=== PATIENT | female | born 1955 | race Hispanic/Latino ===

== ENCOUNTER 2017-01-23 16:31 | Observation (INO) | payer MEDICAID ==
[2017-01-23 16:49] VITALS: BMI 23.1
[2017-01-23 17:54] LABS: ADD MANUAL DIFF? NO
--- NOTE | 2017-01-23 17:54 | RAD ---
HISTORY: Chest pain, palpitations COMPARISON: 12/19/2016. FINDINGS: LUNGS: The lungs are hyperinflated and there is peribronchial thickening with chronic changes in both lungs. There is no lobar pneumonia. PLEURA: No significant pleural effusion identified, no pneumothorax apparent. CARDIOVASCULAR: Normal. OSSEOUS STRUCTURES: No significant abnormalities. VISUALIZED UPPER ABDOMEN: Normal. OTHER FINDINGS: None. IMPRESSION: No active pulmonary disease. COPD.
[2017-01-23 18:05] LABS: BASO # 0.03 K/mm3 (0.0-2.0); BASO % 0.3 % (0.0-3.0); EOS # 0.2 (0.0-0.7); EOS % 2.3 % (1.5-5.0); GRAN # 5.11 (1.4-6.5); GRAN % 56.9 % (50.0-68.0); HEMATOCRIT 43.1 % (36.0-48.0); LYMPH # 2.9 (1.2-3.4); MEAN CELL VOLUME 95.4 fL (80.0-105.0); MEAN CORPUSCULAR HEMOGLOBIN 33.6 pg (25.0-35.0); MEAN CORPUSCULAR HGB CONC 35.3 g/dl (31.0-37.0); MEAN PLATELET VOLUME 10.2 fl (7.0-11.0); MONO # 0.8 (0.1-0.6); MONO % 8.5 % (1.0-6.0); PLATELET COUNT 199 10^3/uL (120.0-450.0); RED CELL DISTRIBUTION WIDTH 13.6 % (11.5-14.5)
[2017-01-23 18:06] LABS: INR 2.83 (0.93-1.08); PARTIAL THROMBOPLASTIN TIME 42.2 Seconds (23.7-30.8)
[2017-01-23 18:10] LABS: ALB/GLOB RATIO 1.3 (1.1-1.8); ALKALINE PHOSPHATASE 58 U/L (38-133); ALT/SGPT 26 U/L (7-56); AST/SGOT 22 U/L (15-39); BILIRUBIN,TOTAL 1.1 mg/dL (0.2-1.3); BLOOD UREA NITROGEN 15 mg/dL (7-21); CALCIUM 10.4 mg/dL (8.4-10.5); CARBON DIOXIDE 24 mmol/L (21-33); CHLORIDE 99 mmol/L (98-107); GFR AFRICAN-AMERICAN > 60; GLUCOSE,RANDOM 160 mg/dL (70-110); POTASSIUM 3.8 mmol/L (3.6-5.0); SODIUM 138 mmol/L (132-148); TOTAL PROTEIN 8.1 g/dL (5.8-8.3)
[2017-01-23 18:25] LABS: TROPONIN I < 0.01 ng/mL
[2017-01-23 18:49] LABS: T4 9.6 ug/dL (5.5-11.0)
--- NOTE | 2017-01-23 19:02 | ED PDOC ---
Arrival/HPI - General Chief Complaint: Anxiety Time Seen by Provider: 01/23/17 16:58 Historian: Patient - History of Present Illness Narrative History of Present Illness (Text): 01/23/17 18:48 Patient with PMHx includes DM, acute coronary syndrome, afib, HTN, pharyngitis, pneumonia, TIA, hyperthyroidism, psoriasis (elbows), osteoporosis, diverticulitis, panic disorder and pancreatitis, reports experiencing dizziness described as lightheadedness with palpitations, heaviness to the center of her chest, and SOB, which all started one hour prior to arrival after she took a shower, patient states that she got dressed immediately and sat down, reports that her symptoms improved however she still continues to complain of dizziness and heaviness to her chest upon arrival to the emergency room. Otherwise: (-) radiation, (-) diaphoresis, (-) dyspnea, (-) pleuritic component, (-) ripping or tearing quality, (-) positional component, (-) exertional component, (+) mild headache, (-) syncope, (-) nausea, (-) vomiting, (-) calf swelling/pain, (- ) recent travel, (-) neuro deficits. Of note patient reports having a stress test recently however does not know the results. PMD [place] Past Medical History - Provider Review Nursing Documentation Reviewed: Yes - Infectious Disease Hx of Infectious Diseases: None - Tetanus Immunization Tetanus Immunization: Unknown - Cardiac Hx Cardiac Disorders: Yes (ACS(ACUTE CORONARY SYNDROME)) Hx Cardiac Arrhythmia: Yes (AFIB) Hx Hypertension: Yes - Pulmonary Hx Pneumonia: Yes (" LAST TIME WAS A LONG TIME AGO.") - Neurological Hx Neurological Disorder: Yes Hx Transient Ischemic Attacks (TIA): Yes - HEENT Hx HEENT Disorder: No - Renal Hx Renal Disorder: Yes Hx Kidney Stones: Yes - Endocrine/Metabolic Hx Diabetes Mellitus Type 2: Yes - Hematological/Oncological Hx Blood Disorders: No - Integumentary Hx Dermatological Disorder: Yes Hx Psoriasis: Yes ([place]) - Musculoskeletal/Rheumatological Hx Arthritis: Yes ("LASHAWN. TO MY BACK") Hx Osteoarthritis: Yes - Gastrointestinal Hx Pancreatitis: Yes - Genitourinary/Gynecological Hx Genitourinary Disorders: Yes - Psychiatric Hx Psychophysiologic Disorder: Yes Hx Panic Disorder: Yes - Surgical History Hx Hysterectomy: Yes - Anesthesia Hx Anesthesia: Yes Hx Anesthesia Reactions: No Hx Malignant Hyperthermia: No - Suicidal Assessment Feels Threatened In Home Enviroment: No Family/Social History - Physician Review Nursing Documentation Reviewed: Yes Family/Social History: No Known Family HX Smoking Status: Heavy Smoker > 10 Cigarettes Daily Hx Alcohol Use: No Hx Substance Use Treatment: No Allergies/Home Meds Allergies/Adverse Reactions: Allergies No Known Allergies Allergy (Verified 01/23/17 16:48) Home Medications: Home Meds Medication Instructions Recorded Confirmed Atorvastatin Calcium [Lipitor] 10 mg PO DAILY 12/04/13 01/23/17 Canagliflozin/Metformin HCl 1 each PO BID 05/22/16 01/23/17 [Invokamet 150-1,000 mg Tablet] Cholecalciferol (Vitamin D3) 1,000 unit PO DAILY 05/22/16 01/23/17 [Vitamin D3] Atenolol [Tenormin] 25 mg PO DAILY 12/15/16 01/23/17 Levothyroxine [Synthroid] 50 mcg PO DAILY 12/15/16 01/23/17 Warfarin [Coumadin] 2 mg PO DAILY 12/15/16 01/23/17 Review of Systems - Review of Systems Constitutional: Normal. absent: Fatigue, Weight Change, Fevers Respiratory: Normal, SOB. absent: Cough, Sputum, Wheezing Cardiovascular: Normal, Chest Pain, Palpitations (due to h/o a fib). absent: Edema Gastrointestinal: Normal. absent: Abdominal Pain, Stool Changes, Nausea, Vomiting Musculoskeletal: Normal. absent: Arthralgias, Back Pain, Neck Pain Skin: Normal. absent: Rash, Pruritis, Skin Lesions Neurological: Normal, Dizziness. absent: Headache, Focal Weakness Psychiatric: Normal, Anxiety (prior episodes). absent: Depression, Suicidal Ideation Physical Exam - Physical Exam Narrative Physical Exam (Text): 01/23/17 18:53 GENERAL APPEARANCE: Patient is awake, alert, anxious, hyperventilating, oriented x 3, in mild distress. SKIN: Warm, dry; (-) cyanosis. EYES: (-) conjunctival pallor. ENMT: Mucous membranes moist. NECK: (-) tenderness, (-) stiffness, (-) lymphadenopathy, (-) JVD. CHEST AND RESPIRATORY: (-) rash, (-) chest wall tenderness. Lungs: (-) rales , (-) rhonchi, (-) wheezes, (-) rub; breath sounds equal bilaterally. HEART AND CARDIOVASCULAR: (-) irregularity; (-) murmur, (-) gallop, (-) rub. ABDOMEN AND GI: Soft; (-) distention, (-) tenderness, (-) palpable pulsatile mass. EXTREMITIES: (-) deformity; (-) edema, (-) calf tenderness. (+) distal pulses. NEURO AND PSYCH: Mental status as above. Cranial nerves grossly intact; strength symmetric. Vital Signs Temp Pulse Resp BP Pulse Ox 01/23/17 21:24 18 98 01/23/17 20:12 78 18 114/26 L 96 01/23/17 17:49 75 18 122/79 99 01/23/17 16:31 98.2 F 77 18 124/84 99 Medical Decision Making ED Course and Treatment: 01/23/17 18:53 61 yo F PMHx of acute coronary syndrome, afib, HTN, presents with an episode of dizziness, heaviness to her chest, palpitations or shortness of breath prior to arrival. Previous medical records reviewed : Patient had an echo on 12/16/14 : EF is 55-60%, trace aortic regurg, mitral valve regurg mild-mod, mod tricupside regurg On 12/01/13, patient had an IV lexiscan nuclear stress test which was (-) for CP and (-) for ST-T changes, nuclear scan report was still pending at that time, test was performed by Dr. Corby Baltazar On Dr. Spain's note written on 12/03/13, patient had a stress thalium test, that showed reversible ischemia, suspicious for ischemia, reported as moderate anterior defect and moderate reversibility due to ischemia. It was documented that the plan was for the patient to go for cardiac cath then. Plan: -- Labs -- IV fluids -- Urinalysis -- TSH / T3/ T4 -- EKG -- CXR -- ASA PO -- Ativan IV -- Reassess and disposition Re-evaluation Time: 19:00 Reassessment Condition: Re-examined, Improved (Patient lying in bed in no acute distress, reports no lightheadedness, chest pain, shortness of breath at this time.) - Lab Interpretations Lab Results: 01/23/17 17:40 01/23/17 17:40 Lab Results 01/23/17 17:40: Thyroxine (T4) 9.6, Total T3 0.84 L, TSH 3rd Generation 2.04 01/23/17 17:40: Sodium 138, Potassium 3.8, Chloride 99, Carbon Dioxide 24, Anion Gap 19, BUN 15, Creatinine 0.7, Est GFR ( Amer) > 60, Est GFR (Non- Af Amer) > 60, Random Glucose 160 H, Calcium 10.4, Magnesium 2.0, Total Bilirubin 1.1, AST 22, ALT 26, Alkaline Phosphatase 58, Lactate Dehydrogenase 372, Total Creatine Kinase 33 L, Troponin I < 0.01, NT-Pro-B Natriuret Pep 61.3 , Total Protein 8.1, Albumin 4.5, Globulin 3.6, Albumin/Globulin Ratio 1.3 01/23/17 17:40: PT 30.6 H*, INR 2.83 H, APTT 42.2 H 01/23/17 17:40: WBC 9.0, RBC 4.52, Hgb 15.2, Hct 43.1, MCV 95.4, MCH 33.6, MCHC 35.3, RDW 13.6, Plt Count 199, MPV 10.2, Gran % 56.9, Lymph % (Auto) 32.0, [place] % (Auto) 8.5 H, Eos % (Auto) 2.3, Baso % (Auto) 0.3, Gran # 5.11, Lymph # 2.9, Carson # 0.8 H, Eos # 0.2, Baso # 0.03 I have reviewed the lab results: Yes (trop (-) BNP (-) ) Interpretation: All labs normal - RAD Interpretation Narrative RAD Interpretations (Text): 01/23/17 23:16 CXR : NAD, as read by TINO Radiology Orders: 01/23/17 17:28 CHEST PORTABLE [RAD] Stat - EKG Interpretation EKG Interpretation (Text): 01/23/17 23:17 EKG: NSR at 68 bpm, (-) acute ST changes, as read by TINO. - Medication Orders Current Medication Orders: Acetaminophen (Tylenol 325mg Tab) 650 mg PO Q6 PRN PRN Reason: Pain, moderate (4-7) Aspirin (Aspirin Chewable) 81 mg PO DAILY GISELL Atenolol (Tenormin) 25 mg PO DAILY GISELL Atorvastatin Calcium (Lipitor) 10 mg PO DIN GISELL Cholecalciferol (Vitamin D) 1,000 iu PO DAILY GISELL Famotidine (Pepcid) 20 mg PO DAILY [facility] Insulin Human Regular (Humulin R Low) 0 units SC ACHS GISELL PRN Reason: Protocol Last Admin: 01/23/17 22:18 Dose: Not Given Non-Admin Reason: Blood Sugar Parameter Levothyroxine Sodium (Synthroid) 50 mcg PO ACB GISELL Warfarin Sodium (Coumadin) 2 mg PO 1800 GISELL PRN Reason: Protocol Discontinued Medications Aspirin (Aspirin) 325 mg PO STAT STA Stop: 01/23/17 17:28 Last Admin: 01/23/17 18:31 Dose: 325 mg Lorazepam (Ativan) 0.5 mg IVP ONCE ONE PRN Reason: Protocol Stop: 01/23/17 17:30 Last Admin: 01/23/17 18:31 Dose: 0.5 mg - Transfer of Care Other: Case d/w Dr. Lerner, agrees with plan for inpatient tele obs. - PA / DRUM TESTER / Resident Statement / has reviewed & agrees with the documentation as recorded. Disposition/Present on Arrival - Present on Arrival Any Indicators Present on Arrival: Yes History of DVT/PE: No History of Uncontrolled Diabetes: Yes Urinary Catheter: No History of Decub. Ulcer: No History Surgical Site Infection Following: None - Disposition Have Diagnosis and Disposition been Completed?: Yes Diagnosis: Chest pain, Palpitations Disposition: HOSPITALIZED Disposition Time: 19:38 Patient Plan: Observation (telemetry) Patient Problems: Current Active Problems Problem Status Onset Chest pain Acute Palpitations Acute Condition: STABLE
[2017-01-23 19:03] LABS: T3 0.84 ng/mL (0.97-1.69); THYROID STIMULATING HORMONE 2.04 mIU/mL (0.46-4.68)
[2017-01-23 20:43] LABS: URINE BILIRUBIN NEGATIVE (NEGATIVE); URINE BLOOD TRACE-INTACT (NEGATIVE); URINE GLUCOSE (UA) >=1000 mg/dL (NEGATIVE); URINE KETONE NEGATIVE (NEGATIVE); URINE LEUKOCYTE ESTERASE NEGATIVE Leu/uL (NEGATIVE); URINE PROTEIN NEGATIVE mg/dL (<30 mg/dL); URINE UROBILINOGEN 0.2 E.U./dL (<1 E.U./dL)
[2017-01-23 20:45] LABS: URINE APPEARANCE CLEAR (CLEAR); URINE COLOR YELLOW (YELLOW)
[2017-01-23 20:48] LABS: URINE WBC 0 - 2 /hpf (0-6)
[2017-01-23 20:49] LABS: URINE AMORPHOUS SEDIMENT FEW; URINE BACTERIA MANY (NEG)
--- NOTE | 2017-01-23 21:14 | CP.PCM.HP ---
<OrtizIsacMegan - Last Filed: 01/23/17 21:46> History of Present Illness - History of Present Illness History of Present Illness: Internal medicine H & P for Hospitalist Team- Megan Ortiz, PGY-1 Pt S & E at bedside. 61F w/PMH sig for paroxysmal afib on Coumadin and multiple co-morbidities admitted for chest tightness x 1 day. Pt reports she was taking a shower this evening, when she stepped out of the shower, she felt her chest was tight. Pt reports palpitations, variable heart racing/susana- felt like when she had afib before, pt got frightened, called her son- who called EMS to transport pt to hospital. Admits to lightheadedness, SOB, blurry vision, recent diarrhea & xerostomia (stopped 4-5 days ago after pt discontinued medication for urinary incontinence), urinary incontinence. Denies N/V/F/C, chest pain, abdominal pain , dizziness, recent changes in bowel or bladder habits, LE numbness/tingling/ edema/pain, [place], chest pain with exertion. PMH: DM, HTN, afib, hypothyroidism, arthritis, hx pancreatitis, PUD, nephrolithiasis, osteoporosis PSH: Hysterectomy (1996) All: NKA SH: ETOH on special occasions/rare, admits to Tobacco use 1/2ppd x 25 yrs, denies illicit drug use PMD: [place] Pharmacy: [facility] meds: Atenolol 25mg QD, Synthroid 50mg QD, Coumadin 2mg QD, D3 1,000mg QD, Invokemet/Metformin 150/1000mg BID Present on Admission - Present on Admission Any Indicators Present on Admission: No History of DVT/PE: No History of Uncontrolled Diabetes: No Urinary Catheter: No Decubitus Ulcer Present: No Review of Systems - Review of Systems All systems: reviewed and no additional remarkable complaints except - Constitutional Constitutional: Lethargy, Weight Loss. absent: Chills, Fever, Headache, Weakness - EENT Eyes: Blurred Vision. absent: Diplopia Nose/Mouth/Throat: absent: Nasal Congestion, Sore Throat - Cardiovascular Cardiovascular: Dyspnea, Lightheadedness, Palpitations, Rapid Heart Rate, Slow Heart Rate. absent: Chest Pain, Dyspnea on Exertion, Pain Radiating to Arm/Neck /Jaw, Leg Edema - Respiratory Respiratory: absent: Cough - Gastrointestinal Gastrointestinal: Diarrhea (resolved- occurred while on a medication that she discontinued 4-5 days ago). absent: Abdominal Pain, Constipation, Nausea, Vomiting - Genitourinary Genitourinary: Urinary Incontinence. absent: Difficulty Urinating, Dysuria - Musculoskeletal Musculoskeletal: absent: Neck Pain, Numbness, Tingling - Integumentary Integumentary: absent: Rash - Neurological Neurological: absent: Dizziness, Tingling, Weakness - Psychiatric Psychiatric: Anxiety Past Patient History - Infectious Disease Hx of Infectious Diseases: None - Tetanus Immunizations Tetanus Immunization: Unknown - Past Medical History & Family History Past Medical History?: Yes - Past Social History Smoking Status: Heavy Smoker > 10 Cigarettes Daily - CARDIAC Hx Cardiac Disorders: Yes (ACS(ACUTE CORONARY SYNDROME)) Hx Cardia Arrhythmia: Yes (AFIB) Hx Hypertension: Yes - PULMONARY Hx Pneumonia: Yes (" LAST TIME WAS A LONG TIME AGO.") - NEUROLOGICAL Hx Neurological Disorder: Yes Hx Transient Ischemic Attacks (TIA): Yes - HEENT Hx HEENT Problems: No - RENAL Hx Chronic Kidney Disease: Yes Hx Kidney Stones: Yes - ENDOCRINE/METABOLIC Hx Diabetes Mellitus Type 2: Yes - HEMATOLOGICAL/ONCOLOGICAL Hx Blood Disorders: No - INTEGUMENTARY Hx Dermatological Problems: Yes Hx Psoriasis: Yes ([place]) - MUSCULOSKELETAL/RHEUMATOLOGICAL Hx Arthritis: Yes ("LASHAWN. TO MY BACK") Hx Osteoarthritis: Yes - GASTROINTESTINAL Hx Pancreatitis: Yes - GENITOURINARY/GYNECOLOGICAL Hx Genitourinary Disorders: Yes - PSYCHIATRIC Hx Psychophysiologic Disorder: Yes Hx Panic Symptoms: Yes - SURGICAL HISTORY Hx Hysterectomy: Yes - ANESTHESIA Hx Anesthesia: Yes Hx Anesthesia Reactions: No Hx Malignant Hyperthermia: No Meds Allergies/Adverse Reactions: Allergies Allergy/AdvReac Type Severity Reaction Status Date / Time No Known Allergies Allergy Verified 01/23/17 16:48 Physical Exam - Constitutional Appears: Non-toxic, No Acute Distress - Head Exam Head Exam: ATRAUMATIC, NORMAL INSPECTION, NORMOCEPHALIC - Eye Exam Eye Exam: EOMI, Normal appearance, PERRL Pupil Exam: NORMAL ACCOMODATION, PERRL - ENT Exam ENT Exam: Mucous Membranes Moist, Normal Exam - Neck Exam Neck exam: Positive for: Full Rom, Normal Inspection. Negative for: Tenderness - Respiratory Exam Respiratory Exam: Clear to Auscultation Bilateral, NORMAL BREATHING PATTERN. absent: Accessory Muscle Use, Chest Wall Tenderness - Cardiovascular Exam Cardiovascular Exam: REGULAR RHYTHM, +S1, +S2. absent: Diastolic murmur, Systolic Murmur - GI/Abdominal Exam GI & Abdominal Exam: Normal Bowel Sounds, Soft. absent: Tenderness - Extremities Exam Extremities exam: Positive for: normal inspection. Negative for: pedal edema, tenderness - Neurological Exam Neurological exam: Alert, CN II-XII Intact, Oriented x3 - Psychiatric Exam Psychiatric exam: Normal Affect, Normal Mood - Skin Skin Exam: Dry, Intact, Normal Color, Warm Results - Vital Signs Recent Vital Signs: Last Vital Signs Temp 98.2 F 01/23/17 16:31 Pulse 78 01/23/17 20:12 Resp 18 01/23/17 20:12 BP 114/26 L 01/23/17 20:12 Pulse Ox 96 01/23/17 20:12 - Labs Result Diagrams: 01/23/17 17:40 01/23/17 17:40 Labs: Laboratory Results - last 24 hr 01/23/17 20:23 Urine Color Yellow Urine Appearance Clear Urine pH 7.0 Ur Specific [place] 1.010 Urine Protein Negative Urine Glucose (UA) >=1000 Urine Ketones Negative Urine Blood Trace-intact H Urine Nitrate Negative Urine Bilirubin Negative Urine Urobilinogen 0.2 Ur Leukocyte Esterase Negative Urine RBC 2 - 5 Urine WBC 0 - 2 Ur Epithelial Cells 1 - 3 Amorphous Sediment Few Urine Bacteria Many Urine Other Uyeast Assessment & Plan - Assessment and Plan (Free Text) Assessment: Chest pain R/O ACS Trop neg x 1 CK 33 BNP 61.3 EKG w/NSR FU serial trops/EKG FU Lipid panel TSH 2.04 T4 0.84 Total T3 0.84 tylenol PRN ASA 81mg QD Restarted home med: Coumadin 2mg QD O2 via NC PRN cardio consulted- Ascencio HTN BP 124/84 Home med: Atenolol 25mg QD DM Blood sugar 160 ISS -low protocol Accuchecks FU A1c diabetic diet Hold home med: Invokemet/metformin HLD FU lipid panel Home med: Lipitor 10mg QD HypovitaminDosis Home med: Cholecalciferol 1,000 units QD Hypothyroidism TSH 2.04 T4 0.84 Total T3 0.84 Home med: Synthroid 50mg QD Anxiety Given Ativan 0.5mg x 1 in ED Lethargic during interview Monitor GI/DVT ppx SCDs Already on Coumadin PT 30.6 PTT 42.4 INR 2.83 Ambulate Dispo Admit to tele VS Q6H HHD/mod CCD Activity as lyla OOBTC Ambulate DW attending - Date & Time Date: 01/23/17 Time: 08:00 Decision To Admit - Pt Status Changed To: Hospital Disposition Of: Observation - . Bed Request Type: Telemetry Admitting Physician: Froilan Lerner MD <Froilan Lerner MD - Last Filed: 01/28/17 07:55> Results - Vital Signs Recent Vital Signs: Last Vital Signs Temp 97.8 F 01/25/17 12:00 Pulse 65 01/25/17 12:00 Resp 20 01/25/17 12:00 BP 112/75 01/25/17 12:00 Pulse Ox 92 L 01/25/17 05:26 - Labs Result Diagrams: 01/24/17 03:00 01/25/17 12:07 Attending/Attestation - Attestation I have personally seen and examined this patient.: Yes I have fully participated in the care of the patient.: Yes I have reviewed all pertinent clinical information: Yes Notes (Text): I agree with the above H&P completed by the resident physician. 01/28/17 07:55
[2017-01-23] MEDS: Insulin Reg-LOW-Coverage SC SCH (22:18)
[2017-01-24 03:09] LABS: ADD MANUAL DIFF? NO
[2017-01-24 03:12] LABS: BASO # 0.03 K/mm3 (0.0-2.0); BASO % 0.4 % (0.0-3.0); EOS # 0.3 (0.0-0.7); EOS % 4.7 % (1.5-5.0); GRAN # 3.03 (1.4-6.5); GRAN % 42.1 % (50.0-68.0); HEMATOCRIT 43.8 % (36.0-48.0); LYMPH % 40.9 % (22.0-35.0); MEAN CELL VOLUME 97.3 fL (80.0-105.0); MEAN CORPUSCULAR HEMOGLOBIN 33.8 pg (25.0-35.0); MEAN CORPUSCULAR HGB CONC 34.7 g/dl (31.0-37.0); MEAN PLATELET VOLUME 10.3 fl (7.0-11.0); MONO # 0.9 (0.1-0.6); MONO % 11.9 % (1.0-6.0); PLATELET COUNT 223 10^3/uL (120.0-450.0); WHITE BLOOD COUNT 7.2 10^3/ul (4.5-11.0)
[2017-01-24 03:17] LABS: INR 2.73 (0.93-1.08)
[2017-01-24 03:24] LABS: ALB/GLOB RATIO 1.2 (1.1-1.8); ALKALINE PHOSPHATASE 55 U/L (38-133); ALT/SGPT 27 U/L (7-56); AST/SGOT 21 U/L (15-39); BILIRUBIN,TOTAL 0.6 mg/dL (0.2-1.3); BLOOD UREA NITROGEN 17 mg/dL (7-21); CALCIUM 9.9 mg/dL (8.4-10.5); CARBON DIOXIDE 28 mmol/L (21-33); CHLORIDE 100 mmol/L (98-107); CHOLESTEROL 155 mg/dL (130-200); GFR AFRICAN-AMERICAN > 60; GLUCOSE,RANDOM 120 mg/dL (70-110); POTASSIUM 4.6 mmol/L (3.6-5.0); SODIUM 140 mmol/L (132-148); TOTAL PROTEIN 7.9 g/dL (5.8-8.3)
[2017-01-24] MEDS: Levothyroxine 50 MCG TAB PO SCH (08:18)
[2017-01-24] MEDS: Insulin Reg-LOW-Coverage SC SCH ×4 (08:18→21:41)
[2017-01-24] MEDS ORDERED: Sodium Chloride 0.9% 1,000 ML IV STA (11:27)
--- NOTE | 2017-01-24 12:51 | CARD ---
APPROVED REPORT EKG Measurement Heart [id number] [place] [id number] <Conclusion> Normal sinus rhythm Normal ECG
--- NOTE | 2017-01-24 12:52 | CARD ---
APPROVED REPORT EKG Measurement Heart [id number] [place] [id number] <Conclusion> Normal sinus rhythm Normal ECG
--- NOTE | 2017-01-24 13:05 | CARD ---
APPROVED REPORT EKG Measurement Heart [id number] [place] [id number] [id number] <Conclusion> Normal sinus rhythm Normal ECG
--- NOTE | 2017-01-24 14:16 | CON ---
DATE: 01/24/2017 HISTORY OF PRESENT ILLNESS: The patient is a 61-year-old woman with transient chest discomfort as we ll as shortness of breath associated with an anxiety episode. PAST MEDICAL HISTORY: Notable for similar symptoms in which in which she underwent cardiac catheteri zation that shows nonobstructive CAD. CARDIAC RISK FACTORS: Include hypertension, hypercholesterolemia and is an active smoker. She is currently on warfarin for history of paroxysmal atrial fibrillation. She does also suffer from diabetes mellitus. SOCIAL HISTORY: The patient is an active smoker. REVIEW OF SYSTEMS: A 14-point review of systems was reviewed. The patient is complaining mostly of anxiety. No chest pain, no shortness of breath noted. PHYSICAL EXAMINATION: VITAL SIGNS: Blood pressure is 101/68, heart rate is in the 60s, normal sinus rhythm. NECK: Negative JVD. LUNGS: Without rales. HEART: Reveals S1, S2. EXTREMITIES: Without edema. EKG is unremarkable. LABORATORIES: Include a hemoglobin of 15. Chemistries: The glucose is 120 with a negative troponin . Toxicology is positive for urine opiates. IMPRESSION: 1. Transient chest discomfort. 2. No evidence for acute coronary syndrome. 3. Chronic obstructive pulmonary disease. 4. Hypertension. 5. Diabetes mellitus. 6. Hypercholesterolemia. 7. Opiates found in the urine. Given these findings, I have discussed with the patient need to stop smoking. There is no evidence for acute coronary syndrome. The patient can be discharged to continue on her p resent medications. I have arranged for an outpatient stress test to evaluate her coronary artery di sease, given her cardiac risk factors. Danilo Ascencio MD cc: [id number] TT: 01/24/2017 14:15:50 Confirmation # [id number] Dictation # [id number]
--- NOTE | 2017-01-24 15:20 | CP.PCM.PN ---
<Ramon Chase - Last Filed: 01/24/17 15:39> Subjective - Date & Time of Evaluation Date of Evaluation: 01/24/17 Time of Evaluation: 09:00 - Subjective Subjective: Dr. Chase PGY 1 Hospitalist Note Patient seen and evaluated at bedside. She reports over night she felt palpitations which she has had in the past and subsequently had chest tightness so she came in to the hospital. Her chest symptoms improved but she reports feeling weak, tired, and overall not feeling well. She reports she had diarrhea the past few days which has resolved. She states she did not sleep well overnight. She denies any foval weakness, vision changes, palpitations, arm pain , abdominal pain, nausea or vomiting. Per nursing, no adverse events over night. Objective - Vital Signs/Intake and Output Vital Signs (last 24 hours): Temp Pulse Resp BP Pulse Ox 97.8 F 63 20 100/69 96 01/24/17 11:38 01/24/17 13:49 01/24/17 11:38 01/24/17 13:49 01/24/17 06:00 Intake and Output: 01/24/17 01/24/17 06:59 18:59 Intake Total 120 Output Total 0 Balance 120 - Medications Medications: Current Medications Acetaminophen (Tylenol 325mg Tab) 650 mg PO Q6 PRN PRN Reason: Pain, moderate (4-7) Aspirin (Aspirin Chewable) 81 mg PO DAILY [facility] Last Admin: 01/24/17 09:17 Dose: 81 mg Atenolol (Tenormin) 25 mg PO DAILY [facility] Last Admin: 01/24/17 09:18 Dose: Not Given Atorvastatin Calcium (Lipitor) 10 mg PO DIN [facility] Cholecalciferol (Vitamin D) 1,000 iu PO DAILY [facility] Last Admin: 01/24/17 09:17 Dose: 1,000 iu Famotidine (Pepcid) 20 mg PO DAILY [facility] Last Admin: 01/24/17 09:17 Dose: 20 mg Sodium Chloride (Sodium Chloride 0.9%) 1,000 mls @ 125 mls/hr IV .Q8H [facility] Insulin Human Regular (Humulin R Low) 0 units SC ACHS [facility] PRN Reason: Protocol Last Admin: 01/24/17 12:18 Dose: Not Given Levothyroxine Sodium (Synthroid) 50 mcg PO ACB [facility] Last Admin: 04/26/17 08:18 Dose: 50 mcg Warfarin Sodium (Coumadin) 2 mg PO 1800 [facility] PRN Reason: Protocol - Labs Labs: 01/24/17 03:00 01/24/17 03:00 PT 29.5 Seconds (9.9-11.8) H 01/24/17 03:00 INR 2.73 (0.93-1.08) H 01/24/17 03:00 APTT 42.2 Seconds (23.7-30.8) H 01/23/17 17:40 - Constitutional Appears: No Acute Distress, Other (weak) - Head Exam Head Exam: ATRAUMATIC - Eye Exam Eye Exam: EOMI, Normal appearance, PERRL Pupil Exam: NORMAL ACCOMODATION, PERRL - ENT Exam ENT Exam: Mucous Membranes Moist - Respiratory Exam Respiratory Exam: Clear to Ausculation Bilateral, NORMAL BREATHING PATTERN. absent: Rales, Rhonchi, Wheezes - Cardiovascular Exam Cardiovascular Exam: REGULAR RHYTHM, +S1, +S2. absent: Gallop, Rubs, Murmur - GI/Abdominal Exam GI & Abdominal Exam: Soft, Tenderness, Normal Bowel Sounds - Extremities Exam Extremities Exam: Full ROM, Normal Capillary Refill, Normal Inspection. absent : Pedal Edema, Tenderness - Back Exam Back Exam: NORMAL INSPECTION. absent: rash noted, tenderness - Neurological Exam Neurological Exam: Alert, Awake, CN II-XII Intact, Oriented x3 - Psychiatric Exam Psychiatric exam: Depressed, Flat Affect - Skin Skin Exam: Dry, Intact, Pallor, Warm Assessment and Plan - Assessment and Plan (Free Text) Assessment: Patient is a 61 y/o F with history of paroxysmal afib, DM, HTN, hypothyroidism, and arthritis who presents with chest tightness and palpitations. Her cardiac enzymes are negative and no changes on EKG. She has recently had diarrhea and xerostomia duo to medication for urinary incontinence. She contiues to by hypotensive after IVF hydration and continues to feel weak. Plan: Chest pain R/O ACS * Cardiology consulted, help appreciated * Cardiac Enzymes negatives x3 * Initial EKG normal sinus rhythm at 68 bpm * Repeat EKG's show no change * Urine drug screen negative * BNP was 61.3 on admission * TSH and T4 wnl * Lipid panl showed elevated triglycerides @163 * Continue ASA 81mg daily * Continue Coumadin 2mg daily * Supplemental O2 NC PRN Hypotension * BP this morning 89/56 * Hold Atenolol * Given 1 L bolus NS and BP raised to 100/69 * Likely due to dehydration * Continue IVF hydration and monitor symptoms DM * ISS -low protocol * Accuchecks * A1c 7.9 * diabetic diet * Hold home med: Invokemet/metformin HLD * Lipid panel not performed fasting * Elevated triglycerides @163 * Recommend repeat fasting as outpatient * Continue home Lipitor 10mg QD Low Vitamin D * continue home Cholecalciferol 1,000 units QD Hypothyroidism * thyroid panel wnl * Continue home Synthroid 50mg QD PPX: * protonix * anticoagulated on Coumadin * able to ambulate Assessment and plan discussed with attending. <Julieta Roman - Last Filed: 01/24/17 16:04> Objective - Vital Signs/Intake and Output Vital Signs (last 24 hours): Temp Pulse Resp BP Pulse Ox 97.8 F 63 20 100/69 96 01/24/17 11:38 01/24/17 13:49 01/24/17 11:38 01/24/17 13:49 01/24/17 06:00 Intake and Output: 01/24/17 01/24/17 06:59 18:59 Intake Total 120 Output Total 0 Balance 120 - Medications Medications: Current Medications Acetaminophen (Tylenol 325mg Tab) 650 mg PO Q6 PRN PRN Reason: Pain, moderate (4-7) Aspirin (Aspirin Chewable) 81 mg PO DAILY [facility] Last Admin: 01/24/17 09:17 Dose: 81 mg Atenolol (Tenormin) 25 mg PO DAILY [facility] Last Admin: 01/24/17 09:18 Dose: Not Given Atorvastatin Calcium (Lipitor) 10 mg PO DIN [facility] Cholecalciferol (Vitamin D) 1,000 iu PO DAILY [facility] Last Admin: 01/24/17 09:17 Dose: 1,000 iu Famotidine (Pepcid) 20 mg PO DAILY [facility] Last Admin: 01/24/17 09:17 Dose: 20 mg Sodium Chloride (Sodium Chloride 0.9%) 1,000 mls @ 125 mls/hr IV .Q8H [facility] Insulin Human Regular (Humulin R Low) 0 units SC ACHS [facility] PRN Reason: Protocol Last Admin: 01/24/17 12:18 Dose: Not Given Levothyroxine Sodium (Synthroid) 50 mcg PO ACB [facility] Last Admin: 01/24/17 08:18 Dose: 50 mcg Warfarin Sodium (Coumadin) 2 mg PO 1800 [facility] PRN Reason: Protocol - Labs Labs: 01/24/17 03:00 01/24/17 03:00 PT 29.5 Seconds (9.9-11.8) H 01/24/17 03:00 INR 2.73 (0.93-1.08) H 01/24/17 03:00 APTT 42.2 Seconds (23.7-30.8) H 01/23/17 17:40 Attending/Attestation - Attestation I have personally seen and examined this patient.: Yes I have fully participated in the care of the patient.: Yes I have reviewed all pertinent clinical information, including history, physical exam and plan: Yes Notes (Text): 01/24/17 16:00 61 year old female with past medical history of paroxysmal afib, diabetes, hypertension and hypothyroidism who presented with complaint of chest pain and palpitations which has resolved. Serial cardiac enzymes were negative and ACS was ruled out. She was seen by cardiology who has recommended for outpatient stress test. Today she complains of generalized weakness. She reports she hasn't slept well for the past few days and had a recent diarrheal illness. She is clinically dehydrated. Her blood pressure earlier this morning was 89/56. After bolus mildly improved to 100/69. Will hold her atenolol and start on iv fluids. PT evaluation. D/c planning tomorrow if her bp and symptoms improve. Julieta Roman MD Hospitalist.
[2017-01-24] MEDS: Sodium Chloride 0.9% 1,000 ML IV SCH (15:35)
[2017-01-25 00:11] VITALS: RESP 20
[2017-01-25] MEDS: Sodium Chloride 0.9% 1,000 ML IV SCH ×2 (02:20→10:01)
[2017-01-25 05:26] VITALS: O2SAT 92
[2017-01-25] MEDS: Levothyroxine 50 MCG TAB PO SCH (08:49)
[2017-01-25] MEDS: Insulin Reg-LOW-Coverage SC SCH ×2 (08:50→11:49)
[2017-01-25] MEDS ORDERED: Sodium Chloride 0.9% 1,000 ML IV ONE (09:38)
--- NOTE | 2017-01-25 09:56 | PN ---
DATE: 01/25/2017 CARDIOLOGY FOLLOWUP The patient is awake, alert, complaining of fatigue. PHYSICAL EXAMINATION: VITAL SIGNS: Blood pressure varies from 97-103. Heart rate is in the 70s. NECK: Negative JVD. LUNGS: Without rales. HEART: Reveals S1, S2. EXTREMITIES: Without edema. LABORATORY DATA: Glucose is 294. IMPRESSION: 1. Fatigue. 2. No evidence for acute coronary syndrome. 3. Chronic obstructive pulmonary disease. 4. History of hypertension. The patient is now relatively hypotensive. 5. Diabetes mellitus. 6. Hypercholesterolemia. PLAN: Given these findings, the patient has appointment for outpatient stress test. However, if she continues to remain in the hospital, we will obtain an echocardiogram to evaluate her LV function. Danilo Ascencio MD cc: [id number] TT: 01/25/2017 09:44:37 Confirmation # [id number] Dictation # [id number] jn
[2017-01-25 12:22] VITALS: BP 112/75; PULSE 65; TEMP 97.8
[2017-01-25 12:23] LABS: BLOOD UREA NITROGEN 13 mg/dL (7-21); CALCIUM 8.7 mg/dL (8.4-10.5); CARBON DIOXIDE 25 mmol/L (21-33); CHLORIDE 106 mmol/L (98-107); GFR AFRICAN-AMERICAN > 60; GLUCOSE,RANDOM 242 mg/dL (70-110); POTASSIUM 4.1 mmol/L (3.6-5.0); SODIUM 138 mmol/L (132-148)
--- NOTE | 2017-01-25 13:58 | CP.PCM.DIS ---
<Ramon Chase - Last Filed: 01/25/17 15:18> Provider - Provider Date of Admission: 01/23/17 19:34 Attending physician: Corby Galarza MD Primary care physician: Erwin Terry MD Consults: Dr. Danilo Ascencio Time Spent in preparation of Discharge (in minutes): 35 Hospital Course - Lab Results Lab Results: Most Recent Lab Values WBC 7.2 10^3/ul (4.5-11.0) 01/24/17 03:00 RBC 4.50 10^6/uL (3.5-6.1) 01/24/17 03:00 Hgb 15.2 gm/dL (12.0-16.0) 01/24/17 03:00 Hct 43.8 % (36.0-48.0) 01/24/17 03:00 MCV 97.3 fL (80.0-105.0) 01/24/17 03:00 MCH 33.8 pg (25.0-35.0) 01/24/17 03:00 MCHC 34.7 g/dl (31.0-37.0) 01/24/17 03:00 RDW 14.0 % (11.5-14.5) 01/24/17 03:00 Plt Count 223 10^3/uL (120.0-450.0) 01/24/17 03:00 MPV 10.3 fl (7.0-11.0) 01/24/17 03:00 Gran % 42.1 % (50.0-68.0) L 01/24/17 03:00 Lymph % (Auto) 40.9 % (22.0-35.0) H 01/24/17 03:00 [place] % (Auto) 11.9 % (1.0-6.0) H 01/24/17 03:00 Eos % (Auto) 4.7 % (1.5-5.0) 01/24/17 03:00 Baso % (Auto) 0.4 % (0.0-3.0) 01/24/17 03:00 Gran # 3.03 (1.4-6.5) 01/24/17 03:00 Lymph # 3.0 (1.2-3.4) 01/24/17 03:00 [place] # 0.9 (0.1-0.6) H 01/24/17 03:00 Eos # 0.3 (0.0-0.7) 01/24/17 03:00 Baso # 0.03 K/mm3 (0.0-2.0) 01/24/17 03:00 PT 29.5 Seconds (9.9-11.8) H 01/24/17 03:00 INR 2.73 (0.93-1.08) H 01/24/17 03:00 APTT 42.2 Seconds (23.7-30.8) H 01/23/17 17:40 Sodium 138 mmol/L (132-148) 01/25/17 12:07 Potassium 4.1 mmol/L (3.6-5.0) 01/25/17 12:07 Chloride 106 mmol/L (98-107) 01/25/17 12:07 Carbon Dioxide 25 mmol/L (21-33) 01/25/17 12:07 Anion Gap 11 (10-20) 01/25/17 12:07 BUN 13 mg/dL (7-21) 01/25/17 12:07 Creatinine 0.6 mg/dL (0.5-1.4) 01/25/17 12:07 Est GFR ( Amer) > 60 01/25/17 12:07 Est GFR (Non-Af Amer) > 60 01/25/17 12:07 POC Glucose (mg/dL) 294 mg/dL (65-110) H 01/24/17 21:29 Random Glucose 242 mg/dL (70-110) H 01/25/17 12:07 Hemoglobin A1c 7.9 % (4.2-6.5) H 01/24/17 03:00 Calcium 8.7 mg/dL (8.4-10.5) 01/25/17 12:07 Magnesium 2.0 mg/dL (1.7-2.2) 01/23/17 17:40 Total Bilirubin 0.6 mg/dL (0.2-1.3) 01/24/17 03:00 AST 21 U/L (15-39) 01/24/17 03:00 ALT 27 U/L (7-56) 01/24/17 03:00 Alkaline Phosphatase 55 U/L (38-133) 01/24/17 03:00 Lactate Dehydrogenase 372 U/L (333-699) 01/23/17 17:40 Total Creatine Kinase 33 U/L (35-230) L 01/23/17 17:40 Troponin I < 0.01 ng/mL 01/24/17 10:55 NT-Pro-B Natriuret Pep 61.3 pg/mL (0-450) 01/23/17 17:40 Total Protein 7.9 g/dL (5.8-8.3) 01/24/17 03:00 Albumin 4.2 g/dL (3.0-4.8) 01/24/17 03:00 Globulin 3.6 gm/dL 01/24/17 03:00 Albumin/Globulin Ratio 1.2 (1.1-1.8) 01/24/17 03:00 Triglycerides 163 mg/dL (35-160) H 01/24/17 03:00 Cholesterol 155 mg/dL (130-200) 01/24/17 03:00 LDL Cholesterol Direct 67 mg/dL (0-129) 01/24/17 03:00 HDL Cholesterol 56 mg/dL (29-60) 01/24/17 03:00 Thyroxine (T4) 9.6 ug/dL (5.5-11.0) 01/23/17 17:40 Total T3 0.84 ng/mL (0.97-1.69) L 01/23/17 17:40 TSH 3rd Generation 2.04 mIU/mL (0.46-4.68) 01/23/17 17:40 Urine Color Yellow (YELLOW) 01/23/17 20:23 Urine Appearance Clear (CLEAR) 01/23/17 20:23 Urine pH 7.0 (4.7-8.0) 01/23/17 20:23 Ur Specific [place] 1.010 (1.005-1.035) 01/23/17 20:23 Urine Protein Negative mg/dL (<30 mg/dL) 01/23/17 20:23 Urine Glucose (UA) >=1000 mg/dL (NEGATIVE) 01/23/17 20:23 Urine Ketones Negative mg/dL (NEGATIVE) 01/23/17 20:23 Urine Blood Trace-intact (NEGATIVE) H 01/23/17 20:23 Urine Nitrate Negative (NEGATIVE) 01/23/17 20:23 Urine Bilirubin Negative (NEGATIVE) 01/23/17 20:23 Urine Urobilinogen 0.2 E.U./dL (<1 E.U./dL) 01/23/17 20:23 Ur Leukocyte Esterase Negative Osei/uL (NEGATIVE) 01/23/17 20:23 Urine RBC 2 - 5 /hpf (0-2) 01/23/17 20:23 Urine WBC 0 - 2 /hpf (0-6) 01/23/17 20:23 Ur Epithelial Cells 1 - 3 /hpf (0-5) 01/23/17 20:23 Amorphous Sediment Few 01/23/17 20:23 Urine Bacteria Many (NEG) 01/23/17 20:23 Urine Other [place]yeast 01/23/17 20:23 Urine Opiates Screen Negative (NEGATIVE) 01/24/17 13:58 Urine Methadone Screen Negative (NEGATIVE) 01/24/17 13:58 Ur Barbiturates Screen Negative (NEGATIVE) 01/24/17 13:58 Ur Phencyclidine Scrn Negative (NEGATIVE) 01/24/17 13:58 Ur Amphetamines Screen Negative (NEGATIVE) 01/24/17 13:58 U Benzodiazepines Scrn Negative (NEGATIVE) 01/24/17 13:58 U Oth Cocaine Metabols Negative (NEGATIVE) 01/24/17 13:58 U Cannabinoids Screen Negative (NEGATIVE) 01/24/17 13:58 - Hospital Course Hospital Course: H&P 61F w/PMH sig for paroxysmal afib on Coumadin and multiple co-morbidities admitted for chest tightness x 1 day. Pt reports she was taking a shower this evening, when she stepped out of the shower, she felt her chest was tight. Pt reports palpitations, variable heart racing/susana- felt like when she had afib before, pt got frightened, called her son- who called EMS to transport pt to hospital. Admits to lightheadedness, SOB, blurry vision, recent diarrhea & xerostomia (stopped 4-5 days ago after pt discontinued medication for urinary incontinence), urinary incontinence. Denies N/V/F/C, chest pain, abdominal pain , dizziness, recent changes in bowel or bladder habits, LE numbness/tingling/ edema/pain, [place], chest pain with exertion. Hospital Course: Patient is a 61 y/o F who presented with complaint of chest tightness. Initial troponin was negative and EKG showed normal sinus rhythm of 68bpm. Cardiology was consulted. Her subsequent cardiac enzymes and repeat EKG's showed no evidence of cardiac ischemia. Her TSH and T4 were within normal limits. Her triglycerides were elevated at 163. Her A1c was found to be 7.9. She was counselled on keeping a diabetic diet and keeping a blood sugar log. She was found to be hypotensive and started on IVF hydration. She was fatigued and lightheaded so she remained overnight with IVF hydration. Her blood pressure improved with hydration and she was able to ambulate with physical therapy. She was determined medically stable for discharge. She was advised to: follow up with your primary care physician within a week; resume home medications except atenolol; take BP daily and resume atenolol after seeing your primary care; make your appointment for outpatient stress test; drink plenty of fluids; refrain from alcohol, tobacco, or drug use; if your condition worsens or new symptoms arise, please return to the emergency room. She verbalized understanding and was discharged home. - Date & Time of H&P Date of H&P: 01/23/17 Time of H&P: 21:11 Discharge Exam - Head Exam Head Exam: ATRAUMATIC, NORMOCEPHALIC - Eye Exam Eye Exam: EOMI, Normal appearance, PERRL Pupil Exam: NORMAL ACCOMODATION, PERRL - ENT Exam ENT Exam: Mucous Membranes Moist, Normal Oropharynx - Respiratory Exam Respiratory Exam: Clear to PA & Lateral, NORMAL BREATHING PATTERN. absent: Rales, Rhonchi, Wheezes - Cardiovascular Exam Cardiovascular Exam: REGULAR RHYTHM, +S1, +S2. absent: Gallop, Rubs, Systolic Murmur - GI/Abdominal Exam GI & Abdominal Exam: Normal Bowel Sounds, Soft. absent: Distended, Tenderness - Extremities Exam Extremities exam: normal inspection, pedal pulses present - Back Exam Back exam: NORMAL INSPECTION. absent: rash noted, tenderness - Neurological Exam Neurological exam: Alert, CN II-XII Intact, Oriented x3, Reflexes Normal - Psychiatric Exam Psychiatric exam: Flat Affect - Skin Skin Exam: Dry, Intact, Normal Color, Warm Discharge Plan - Follow Up Plan Condition: STABLE Disposition: HOME/ ROUTINE Instructions: Chest Pain (DC), Palpitations (DC) Additional Instructions: Please follow up with your primary care physician within a week. Please resume home medications except atenolol. Take BP daily and resume atenolol after seeing your primary care. Please make appointment for outpatient stress test. Drink plenty of fluids. Please refrain from alcohol, tobacco, or drug use. If your condition worsens or new symptoms arise, please return to the emergency room. Referrals: Erwin Terry MD [Primary Care Provider] - Danilo Ascencio MD [Staff Provider] - <Corby Galarza MD - Last Filed: 01/25/17 15:37> Provider - Provider Date of Admission: 01/23/17 19:34 Attending physician: Corby Galarza MD Primary care physician: Erwin Terry MD Hospital Course - Lab Results Lab Results: Most Recent Lab Values WBC 7.2 10^3/ul (4.5-11.0) 01/24/17 03:00 RBC 4.50 10^6/uL (3.5-6.1) 01/24/17 03:00 Hgb 15.2 gm/dL (12.0-16.0) 01/24/17 03:00 Hct 43.8 % (36.0-48.0) 01/24/17 03:00 MCV 97.3 fL (80.0-105.0) 01/24/17 03:00 MCH 33.8 pg (25.0-35.0) 01/24/17 03:00 MCHC 34.7 g/dl (31.0-37.0) 01/24/17 03:00 RDW 14.0 % (11.5-14.5) 01/24/17 03:00 Plt Count 223 10^3/uL (120.0-450.0) 01/24/17 03:00 MPV 10.3 fl (7.0-11.0) 01/24/17 03:00 Gran % 42.1 % (50.0-68.0) L 01/24/17 03:00 Lymph % (Auto) 40.9 % (22.0-35.0) H 01/24/17 03:00 [place] % (Auto) 11.9 % (1.0-6.0) H 01/24/17 03:00 Eos % (Auto) 4.7 % (1.5-5.0) 01/24/17 03:00 Baso % (Auto) 0.4 % (0.0-3.0) 01/24/17 03:00 Gran # 3.03 (1.4-6.5) 01/24/17 03:00 Lymph # 3.0 (1.2-3.4) 01/24/17 03:00 [place] # 0.9 (0.1-0.6) H 01/24/17 03:00 Eos # 0.3 (0.0-0.7) 01/24/17 03:00 Baso # 0.03 K/mm3 (0.0-2.0) 01/24/17 03:00 PT 29.5 Seconds (9.9-11.8) H 01/24/17 03:00 INR 2.73 (0.93-1.08) H 01/24/17 03:00 APTT 42.2 Seconds (23.7-30.8) H 01/23/17 17:40 Sodium 138 mmol/L (132-148) 01/25/17 12:07 Potassium 4.1 mmol/L (3.6-5.0) 01/25/17 12:07 Chloride 106 mmol/L (98-107) 01/25/17 12:07 Carbon Dioxide 25 mmol/L (21-33) 01/25/17 12:07 Anion Gap 11 (10-20) 01/25/17 12:07 BUN 13 mg/dL (7-21) 01/25/17 12:07 Creatinine 0.6 mg/dL (0.5-1.4) 01/25/17 12:07 Est GFR ( Amer) > 60 01/25/17 12:07 Est GFR (Non-Af Amer) > 60 01/25/17 12:07 POC Glucose (mg/dL) 294 mg/dL (65-110) H 01/24/17 21:29 Random Glucose 242 mg/dL (70-110) H 01/25/17 12:07 Hemoglobin A1c 7.9 % (4.2-6.5) H 01/24/17 03:00 Calcium 8.7 mg/dL (8.4-10.5) 01/25/17 12:07 Magnesium 2.0 mg/dL (1.7-2.2) 01/23/17 17:40 Total Bilirubin 0.6 mg/dL (0.2-1.3) 01/24/17 03:00 AST 21 U/L (15-39) 01/24/17 03:00 ALT 27 U/L (7-56) 01/24/17 03:00 Alkaline Phosphatase 55 U/L (38-133) 01/24/17 03:00 Lactate Dehydrogenase 372 U/L (333-699) 01/23/17 17:40 Total Creatine Kinase 33 U/L (35-230) L 01/23/17 17:40 Troponin I < 0.01 ng/mL 01/24/17 10:55 NT-Pro-B Natriuret Pep 61.3 pg/mL (0-450) 01/23/17 17:40 Total Protein 7.9 g/dL (5.8-8.3) 01/24/17 03:00 Albumin 4.2 g/dL (3.0-4.8) 01/24/17 03:00 Globulin 3.6 gm/dL 01/24/17 03:00 Albumin/Globulin Ratio 1.2 (1.1-1.8) 01/24/17 03:00 Triglycerides 163 mg/dL (35-160) H 01/24/17 03:00 Cholesterol 155 mg/dL (130-200) 01/24/17 03:00 LDL Cholesterol Direct 67 mg/dL (0-129) 01/24/17 03:00 HDL Cholesterol 56 mg/dL (29-60) 01/24/17 03:00 Thyroxine (T4) 9.6 ug/dL (5.5-11.0) 01/23/17 17:40 Total T3 0.84 ng/mL (0.97-1.69) L 01/23/17 17:40 TSH 3rd Generation 2.04 mIU/mL (0.46-4.68) 01/23/17 17:40 Urine Color Yellow (YELLOW) 01/23/17 20:23 Urine Appearance Clear (CLEAR) 01/23/17 20:23 Urine pH 7.0 (4.7-8.0) 01/23/17 20:23 Ur Specific [place] 1.010 (1.005-1.035) 01/23/17 20:23 Urine Protein Negative mg/dL (<30 mg/dL) 01/23/17 20:23 Urine Glucose (UA) >=1000 mg/dL (NEGATIVE) 01/23/17 20:23 Urine Ketones Negative mg/dL (NEGATIVE) 01/23/17 20:23 Urine Blood Trace-intact (NEGATIVE) H 01/23/17 20:23 Urine Nitrate Negative (NEGATIVE) 01/23/17 20:23 Urine Bilirubin Negative (NEGATIVE) 01/23/17 20:23 Urine Urobilinogen 0.2 E.U./dL (<1 E.U./dL) 01/23/17 20:23 Ur Leukocyte Esterase Negative Osei/uL (NEGATIVE) 01/23/17 20:23 Urine RBC 2 - 5 /hpf (0-2) 01/23/17 20:23 Urine WBC 0 - 2 /hpf (0-6) 01/23/17 20:23 Ur Epithelial Cells 1 - 3 /hpf (0-5) 01/23/17 20:23 Amorphous Sediment Few 01/23/17 20:23 Urine Bacteria Many (NEG) 01/23/17 20:23 Urine Other [place] 01/23/17 20:23 Urine Opiates Screen Negative (NEGATIVE) 01/24/17 13:58 Urine Methadone Screen Negative (NEGATIVE) 01/24/17 13:58 Ur Barbiturates Screen Negative (NEGATIVE) 01/24/17 13:58 Ur Phencyclidine Scrn Negative (NEGATIVE) 01/24/17 13:58 Ur Amphetamines Screen Negative (NEGATIVE) 01/24/17 13:58 U Benzodiazepines Scrn Negative (NEGATIVE) 01/24/17 13:58 U Oth Cocaine Metabols Negative (NEGATIVE) 01/24/17 13:58 U Cannabinoids Screen Negative (NEGATIVE) 01/24/17 13:58 Attending/Attestation - Attestation I have personally seen and examined this patient.: Yes I have fully participated in the care of the patient.: Yes I have reviewed all pertinent clinical information, including history, physical exam and plan: Yes Notes (Text): Patient was seen and examined with medical sociologist .Agreed with resident assessment and plan. Patient bllod pressure has improved with IB=V hydration.Her Atenolol is on hold.Low blood pressure is likely due to medication.There is no evidence of infection.Patient was asymptometic.There is no dizziness, renal functions are normal.Patient is on room air .She was evaluated by Physical therapy prior to discharge. She has been advised to monitor bllod pressure at home and keep record for PCP.She will follow up with Cardiology as out patient. Management plan was discussed in detail with patient Education was provided.
== END 2017-01-25 14:43 | disposition home or self-care (01) ==
LOC: ED 16:31 → ERH 19:34 → 2RNO 21:32
PROVIDERS: ADMIT Internal Medicine; ATTEND Internal Medicine
DX: R07.9 Chest pain, unspecified (principal); R00.2 Palpitations; E03.9 Hypothyroidism, unspecified; E11.9 Type 2 diabetes mellitus without complications; E78.00 Pure hypercholesterolemia, unspecified; E78.5 Hyperlipidemia, unspecified; E86.0 Dehydration; F41.0 Panic disorder [episodic paroxysmal anxiety]; I10 Essential (primary) hypertension; I25.10 Atherosclerotic heart disease of native coronary artery without angina pectoris; I48.0 Paroxysmal atrial fibrillation; J44.9 Chronic obstructive pulmonary disease, unspecified; M81.0 Age-related osteoporosis without current pathological fracture; Z79.01 Long term (current) use of anticoagulants; Z79.899 Other long term (current) drug therapy; Z86.73 Personal history of transient ischemic attack (TIA), and cerebral infarction without residual deficits; Z87.01 Personal history of pneumonia (recurrent); Z87.11 Personal history of peptic ulcer disease; Z87.442 Personal history of urinary calculi; Z90.710 Acquired absence of both cervix and uterus; L40.9 Psoriasis, unspecified; M19.90 Unspecified osteoarthritis, unspecified site; Z87.19 Personal history of other diseases of the digestive system; F17.210 Nicotine dependence, cigarettes, uncomplicated; R32 Unspecified urinary incontinence; I95.9 Hypotension, unspecified; E78.1 Pure hyperglyceridemia; R53.83 Other fatigue
CPT/HCPCS: 36415; 71010; 80048; 80053; 80061; 80324; 80345; 80346; 80349; 80353; 80358; 80361; 81001; 82550; 82948; 83036; 83615; 83735; 83880; 83992; 84436; 84443; 84480; 84484; 85025; 85610; 85730; 93005; 96374; 97162; 97530; 99285; G0378; G8978; G8979; G8980; J2060; J7040

== ENCOUNTER 2017-03-15 17:10 | Emergency (ER) | payer MEDICAID ==
[2017-03-15 17:10] VITALS: BMI 23.1
[2017-03-15 17:23] VITALS: BP 104/68; PULSE 82; RESP 18; TEMP 98.4; O2SAT 100
--- NOTE | 2017-03-15 17:34 | ED PDOC ---
Arrival/HPI - General Chief Complaint: Lower Extremity Problem/Injury Time Seen by Provider: 03/15/17 17:19 Historian: Patient - History of Present Illness Narrative History of Present Illness (Text): 03/15/17 17:31 61yo female present with left ankle pain s/p trauma. States she twisted her ankle, when she stepped into a pot hole yesterday. Ambulating with pain. Did not take any medication. Denies hitting her head anywhere. Denies any other complaint. Past Medical History - Provider Review Nursing Documentation Reviewed: Yes - Infectious Disease Hx of Infectious Diseases: None - Tetanus Immunization Tetanus Immunization: Unknown - Cardiac Hx Cardiac Disorders: Yes (ACS(ACUTE CORONARY SYNDROME)) Hx Hypertension: Yes - Pulmonary Hx Pneumonia: Yes - Neurological Hx Neurological Disorder: Yes Hx Transient Ischemic Attacks (TIA): Yes - HEENT Hx HEENT Disorder: No - Renal Hx Renal Disorder: Yes Hx Kidney Stones: Yes - Endocrine/Metabolic Hx Diabetes Mellitus Type 2: Yes - Hematological/Oncological Hx Blood Disorders: No - Integumentary Hx Dermatological Disorder: Yes Hx Psoriasis: Yes ([place]) - Musculoskeletal/Rheumatological Hx Arthritis: Yes Hx Back Pain: Yes - Gastrointestinal Hx Pancreatitis: Yes - Genitourinary/Gynecological Hx Genitourinary Disorders: Yes - Psychiatric Hx Psychophysiologic Disorder: Yes Hx Panic Disorder: Yes - Surgical History Hx Hysterectomy: Yes - Anesthesia Hx Anesthesia: Yes - Suicidal Assessment Feels Threatened In Home Enviroment: No Family/Social History - Physician Review Nursing Documentation Reviewed: Yes Family/Social History: Unknown Family HX Smoking Status: Heavy Smoker > 10 Cigarettes Daily Hx Alcohol Use: No Hx Substance Use Treatment: No Allergies/Home Meds Allergies/Adverse Reactions: Allergies No Known Allergies Allergy (Verified 03/15/17 17:18) Home Medications: Home Meds Medication Instructions Recorded Confirmed Atorvastatin Calcium [Lipitor] 10 mg PO DAILY 12/04/13 03/15/17 Canagliflozin/Metformin HCl 1 each PO BID 05/22/16 03/15/17 [Invokamet 150-1,000 mg Tablet] Cholecalciferol (Vitamin D3) 1,000 unit PO DAILY 05/22/16 03/15/17 [Vitamin D3] Levothyroxine [Synthroid] 50 mcg PO DAILY 12/15/16 03/15/17 Warfarin [Coumadin] 2 mg PO DAILY 12/15/16 03/15/17 Review of Systems - Physician Review All systems were reviewed & negative as marked: Yes - Review of Systems Constitutional: Normal Eyes: Normal ENT: Normal Respiratory: Normal Cardiovascular: Normal Gastrointestinal: Normal Genitourinary Female: Normal Musculoskeletal: Arthralgias (Left ankle) Skin: Normal Neurological: Normal Endocrine: Normal Hemo/Lymphatic: Normal Psychiatric: Normal Physical Exam Vital Signs Reviewed: Yes Vital Signs Temp Pulse Resp BP Pulse Ox 03/15/17 17:19 98.4 F 82 18 104/68 100 Temperature: Afebrile Blood Pressure: Normal Pulse: Regular Respiratory Rate: Normal Appearance: Positive for: Well-Appearing, Non-Toxic, Comfortable Pain Distress: None Mental Status: Positive for: Alert and Oriented X 3 - Systems Exam Head: Present: Atraumatic, Normocephalic Pupils: Present: PERRL Extroacular Muscles: Present: EOMI Conjunctiva: Present: Normal Mouth: Present: Moist Mucous Membranes Neck: Present: Normal Range of Motion Respiratory/Chest: Present: Clear to Auscultation, Good Air Exchange. No: Respiratory Distress, Accessory Muscle Use Cardiovascular: Present: Regular Rate and Rhythm, Normal S1, S2. No: Murmurs Abdomen: Present: Normal Bowel Sounds. No: Tenderness, Distention, Peritoneal Signs Back: Present: Normal Inspection Upper Extremity: Present: Normal Inspection. No: Cyanosis, Edema Lower Extremity: Present: NORMAL PULSES, Normal ROM, Tenderness (Left medail malleolus and lateral foot), Swelling (Left lateral foot), Neurovascularly Intact. No: Edema, Erythema (Ecchymosis noted over the lateral foot) Neurological: Present: GCS=15, CN II-XII Intact, Speech Normal Skin: Present: Warm, Dry, Normal Color. No: Rashes Psychiatric: Present: Alert, Oriented x 3, Normal Insight, Normal Concentration Medical Decision Making ED Course and Treatment: 03/15/17 18:04 Left foot/ankle xray - No acute fracture/dislocation noted Tyler wrap/Air cast/ walking cane given Advised to Rest, Ice, compress and elevate foot Referred to her PMD/Ortho. TRT ED for any new or worsening symptoms - RAD Interpretation Radiology Orders: 03/15/17 17:25 ANKLE LEFT 3 VIEWS ROUTINE [RAD] Stat FOOT LEFT 3 VIEWS ROUTINE [RAD] Stat - Medication Orders Current Medication Orders: Discontinued Medications Acetaminophen (Tylenol 325mg Tab) 650 mg PO STAT STA Stop: 03/15/17 18:12 Tramadol HCl (Ultram) 50 mg PO STAT STA Stop: 03/15/17 17:29 Last Admin: 03/15/17 18:02 Dose: Not Given Non-Admin Reason: Patient Refused Disposition/Present on Arrival - Present on Arrival Any Indicators Present on Arrival: No History of DVT/PE: No History of Uncontrolled Diabetes: Yes Urinary Catheter: No History of Decub. Ulcer: No History Surgical Site Infection Following: None - Disposition Have Diagnosis and Disposition been Completed?: Yes Diagnosis: Ankle sprain Disposition: HOME/ ROUTINE Disposition Time: 18:05 Patient Plan: Discharge Patient Problems: Current Active Problems Problem Status Onset Ankle sprain Acute Condition: STABLE Discharge Instructions (ExitCare): Ankle Sprain (ED) Additional Instructions: Follow up with your Doctor/orthopedist Return to ED for any new or worsening symptoms Prescriptions: traMADol [Ultram] 50 mg PO TID #8 tab Referrals: Erwin Terry MD [Primary Care Provider] - Follow up with primary Fuentes Engel MD [Staff Provider] - Follow up with primary
--- NOTE | 2017-03-16 10:04 | RAD ---
PROCEDURE: Left Foot Radiographs. HISTORY: foot pain s/p trauma COMPARISON: None. FINDINGS: BONES: Normal. No fracture. JOINTS: Normal. SOFT TISSUES: Normal. 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 IMPRESSION: No acute findings
--- NOTE | 2017-03-16 10:05 | RAD ---
PROCEDURE: Left Ankle Radiographs. HISTORY: ankle pain s/p trauma COMPARISON: None FINDINGS: BONES: Normal. No fracture. JOINTS: Normal. No osteoarthritis. Ankle mortise maintained. Talar dome intact SOFT TISSUES: Normal. OTHER FINDINGS: None. IMPRESSION: Normal left ankle radiographs.
== END 2017-03-15 18:18 | disposition home or self-care (01) ==
LOC: ED 17:10
DX: S93.402A Sprain of unspecified ligament of left ankle, initial encounter (principal); X50.0XXA Overexertion from strenuous movement or load, initial encounter; Y92.410 Unspecified street and highway as the place of occurrence of the external cause

== ENCOUNTER 2018-11-01 13:13 | Outpatient (CLI) | payer MEDICAID | END 2018-11-01 13:14 | disposition home or self-care (01) | LOC: LAB 13:13 ==

== ENCOUNTER 2018-12-16 15:15 | Emergency (ER) | payer MEDICAID ==
[2018-12-16 15:15] VITALS: BMI 23.1
[2018-12-16 15:32] VITALS: RESP 18
[2018-12-16] MEDS ORDERED: Sodium Chloride 0.9% 1,000 ML IV STA (15:53)
[2018-12-16] MEDS ORDERED: Albuterol-Ipratrop 3 mg / 0.5 (3 ml) UD IH STA (15:56)
--- NOTE | 2018-12-16 16:02 | ED PDOC ---
Arrival/HPI - General Chief Complaint: Weakness/Neurological Deficit Time Seen by Provider: 12/16/18 15:21 Historian: Patient - History of Present Illness Narrative History of Present Illness (Text): 12/16/18 16:03 63-year-old female with past medical history of diabetes hypothyroidism, RA, and A. fib, presents complaining of a 2-day history of fever, chills, body aches, generalized weakness, fatigue, productive cough, nausea, vomiting and diarrhea. Patient states that she recently saw her PMD regarding her symptoms and was given amoxicillin which she took for a couple days, she went to follow-up with her PMD today mentioned no relief of her symptoms and was advised to go to the emergency room for further evaluation. Patient states that she has been exposed to her sick granddaughter who is been having fevers at home. Otherwise reports no chest pain, shortness of breath, recent travel, urinary symptoms. PMD [facility] in [place] Past Medical History - Infectious Disease Hx of Infectious Diseases: None - Tetanus Immunization Tetanus Immunization: Unknown - Cardiac Hx Cardiac Disorders: Yes (ACS(ACUTE CORONARY SYNDROME)) Hx Hypertension: Yes - Pulmonary Hx Pneumonia: Yes - Neurological Hx Neurological Disorder: Yes Hx Transient Ischemic Attacks (TIA): Yes - HEENT Hx HEENT Disorder: No - Renal Hx Renal Disorder: Yes Hx Kidney Stones: Yes - Endocrine/Metabolic Hx Diabetes Mellitus Type 2: Yes - Hematological/Oncological Hx Blood Disorders: No - Integumentary Hx Dermatological Disorder: Yes Hx Psoriasis: Yes ([place]) - Musculoskeletal/Rheumatological Hx Arthritis: Yes Hx Back Pain: Yes - Gastrointestinal Hx Pancreatitis: Yes - Genitourinary/Gynecological Hx Genitourinary Disorders: Yes - Psychiatric Hx Psychophysiologic Disorder: Yes Hx Panic Disorder: Yes Hx Substance Use: No - Surgical History Hx Hysterectomy: Yes - Anesthesia Hx Anesthesia: Yes Hx Anesthesia Reactions: No Hx Malignant Hyperthermia: No - Suicidal Assessment Feels Threatened In Home Enviroment: No Family/Social History Family/Social History: No Known Family HX Smoking Status: Heavy Smoker > 10 Cigarettes Daily Hx Alcohol Use: No Hx Substance Use: No Hx Substance Use Treatment: No Allergies/Home Meds Allergies/Adverse Reactions: Allergies No Known Allergies Allergy (Verified 03/15/17 17:18) Home Medications: Home Meds Medication Instructions Recorded Confirmed Atorvastatin Calcium [Lipitor] 10 mg PO DAILY 12/04/13 03/15/17 Canagliflozin/Metformin HCl 1 each PO BID 05/22/16 03/15/17 [Invokamet 150-1,000 mg Tablet] Cholecalciferol (Vitamin D3) 1,000 unit PO DAILY 05/22/16 03/15/17 [Vitamin D3] Levothyroxine [Synthroid] 50 mcg PO DAILY 12/15/16 03/15/17 Warfarin [Coumadin] 2 mg PO DAILY 12/15/16 03/15/17 Review of Systems - Review of Systems Constitutional: Fatigue. absent: Fevers ENT: absent: Sore Throat, Rhinorrhea, Sinus Congestion Respiratory: Cough, Sputum. absent: SOB Cardiovascular: absent: Chest Pain, Palpitations Gastrointestinal: Abdominal Pain, Diarrhea, Nausea, Vomiting Genitourinary Female: absent: Dysuria, Frequency Musculoskeletal: Arthralgias, Myalgias. absent: Back Pain, Neck Pain Skin: absent: Rash, Skin Lesions Neurological: absent: Headache, Dizziness Physical Exam Vital Signs Temp Pulse Resp BP Pulse Ox 12/16/18 15:15 97.6 F 60 18 114/77 98 Temperature: Afebrile Blood Pressure: Normal Pulse: Regular Respiratory Rate: Normal Appearance: Positive for: Non-Toxic, Comfortable Pain Distress: None Mental Status: Positive for: Alert and Oriented X 3 - Systems Exam Head: Present: Atraumatic, Normocephalic Pupils: Present: PERRL Extroacular Muscles: Present: EOMI Conjunctiva: Present: Normal Ears: Present: Normal, NORMAL TM Mouth: Present: Dry Pharnyx: Present: Normal, ERYTHEMA, EXUDATE Neck: Present: Normal Range of Motion. No: Meningeal Signs, Lymphadenopathy Respiratory/Chest: Present: Clear to Auscultation, Good Air Exchange. No: Respiratory Distress, Accessory Muscle Use Cardiovascular: Present: Regular Rate and Rhythm, Normal S1, S2. No: Murmurs Abdomen: No: Tenderness, Distention, Peritoneal Signs Back: Present: Normal Inspection Upper Extremity: Present: Normal Inspection. No: Cyanosis, Edema Lower Extremity: Present: Normal Inspection. No: Edema Neurological: Present: GCS=15, CN II-XII Intact, Speech Normal, Motor Func Grossly Intact, Normal Sensory Function Skin: Present: Warm, Dry, Normal Color. No: Rashes Psychiatric: Present: Alert, Oriented x 3, Normal Insight, Normal Concentration Medical Decision Making ED Course and Treatment: 12/16/18 15:59 Plan : - IV - Labs - UA, urine cx - EKG - CXR - Zofran - Reassess / disposition - Rapid flu 12/16/18 17:33 Labs reviewed : wbc normal, trop (-), inr 5.3, ua +large leuks Rapid flu : (-) CXR : NAD. EKG : NSR at 61 bpm, normal axis, no acute ST changes. Patient states that she has not had her INR levels checked in a while. On reevaluation, patient reports improvement of symptoms, denies any headache, chest pain, shortness of breath, abdominal pain or nausea, states that she feels better after the IVF. VSS. On exam, patient remains awake alert and oriented 3 in no acute distress. Patient is smiling and is cheerful, in good spirits. Diagnostic results discussed with the patient in great detail. Patient states that she would prefer to go home and feels comfortable being discharged. She admits that she has not had blood work to check her INR "in a while." She has not taken her dose of coumadin yet today. Case d/w Dr. Terry, agrees with plan for outpatient follow up, request patient to be advised to hold off on taking coumadin tonight, to resume tomorrow 1 mg and to advised patient to have INR repeated as an outpatient and to follow up with her cardiac rehab nurse regarding INR, if unable to see her cardiac rehab nurse then to see him in the office. Advised to follow up with primary care physician and cardiac rehab nurse in 1-2 days without fail. Advised to take medication as prescribed, to hold off from taking coumadin tonight, to take only 1 mg of coumadin tomorrow as advised by pmd. Return to the emergency room at any time for any new or worsening symptoms. Patient states she fully agrees with and understands discharge instructions. States that she agrees with the plan and disposition. Verbalized and repeated discharge instructions and plan. I have given the patient opportunity to ask any additional questions. - RAD Interpretation Radiology Orders: 12/16/18 15:52 CHEST PORTABLE [RAD] Stat - Medication Orders Current Medication Orders: Sodium Chloride (Sodium Chloride 0.9%) 1,000 mls @ 1,000 mls/hr IV .Q1H STA Stop: 12/16/18 16:52 Discontinued Medications Albuterol/Ipratropium (Duoneb 3 Mg/0.5 Mg (3 Ml) Ud) 3 ml IH STAT STA Stop: 12/16/18 15:57 Ondansetron HCl (Zofran Inj) 4 mg IVP STAT STA Stop: 12/16/18 15:54 - PA / [employer] / Resident Statement MD/DO has reviewed & agrees with the documentation as recorded. Disposition/Present on Arrival - Present on Arrival Any Indicators Present on Arrival: Yes History of DVT/PE: No History of Uncontrolled Diabetes: Yes Urinary Catheter: No History of Decub. Ulcer: No History Surgical Site Infection Following: None - Disposition Have Diagnosis and Disposition been Completed?: Yes Diagnosis: Viral illness Disposition: HOME/ ROUTINE Disposition Time: 18:00 Patient Plan: Discharge Patient Problems: Current Active Problems Problem Status Onset Viral illness Acute Condition: STABLE Discharge Instructions (ExitCare): Viral Syndrome (DC) Additional Instructions: Thank you for letting us take care of you today. You were treated for viral illness. The emergency medical care you received today was directed at your acute symptoms. If you were prescribed any medication, please fill it and take as directed. It may take several days for your symptoms to resolve. Return to the Emergency Department if your symptoms worsen, do not improve, or if you have any other problems. Please contact your doctor in 2 days for re-evaluation and follow up / or call one of the physicians/clinics you have been referred to that are listed on the Patient Visit Information form that is included in your discharge packet. Bring any paperwork you were given at discharge with you along with any medications you are taking to your follow up visit. Our treatment cannot replace ongoing medical care by a primary care provider (PCP) outside of the emergency department. Thank you for allowing the [facility] team to be part of your care today. If you had an X-Ray : A Radiologist will review the ED reading if any change in treatment is needed we will contact you. If you had a urine culture: It will take several days for the results, if any change in treatment is needed we will contact you. Prescriptions: Ondansetron ODT [Zofran ODT] 4 mg PO DAILY PRN #20 odt PRN Reason: Nausea/Vomiting Referrals: Erwin Terry MD [Primary Care Provider] - Follow up with primary Forms: [facility] (Chinese), WORK NOTE
[2018-12-16 16:09] LABS: BASO # 0.02 K/mm3 (0.0-2.0); BASO % 0.3 % (0.0-3.0); EOS # 0.1 (0.0-0.7); EOS % 1.2 % (1.5-5.0); HEMOGLOBIN 13.9 g/dL (12.0-16.0); LYMPH # 2.1 (1.2-3.4); LYMPH % 34.6 % (22.0-35.0); MEAN CELL VOLUME 95.1 fl (80.0-105.0); MEAN CORPUSCULAR HEMOGLOBIN 32.3 pg (25.0-35.0); MEAN CORPUSCULAR HGB CONC 33.9 g/dl (31.0-37.0); MEAN PLATELET VOLUME 10.4 fl (7.0-11.0); MONO # 0.5 (0.1-0.6); MONO % 8.6 % (1.0-6.0); RBC 4.31 10^6/uL (3.5-6.1); RED CELL DISTRIBUTION WIDTH 13.1 % (11.5-14.5)
[2018-12-16 16:22] LABS: PARTIAL THROMBOPLASTIN TIME 56.3 Seconds (26.9-38.3)
[2018-12-16 16:28] LABS: ALB/GLOB RATIO 1.1 (1.1-1.8); ALBUMIN 4.3 g/dL (3.0-4.8); ALT/SGPT 6 U/L (7-56); AST/SGOT 27 U/L (14-36); BLOOD UREA NITROGEN 13 mg/dL (7-21); CALCIUM 9.8 mg/dL (8.4-10.5); GFR NON-AFRICAN AMERICAN > 60; LIPASE 21 U/L (23-300)
[2018-12-16 16:31] LABS: INR 5.34; PROTHROMBIN TIME 59.3 SECONDS (9.4-12.5)
--- NOTE | 2018-12-16 16:31 | RAD ---
Date of service: 12/16/2018 HISTORY: weak, cough COMPARISON: 01/23/2017 FINDINGS: LUNGS: No active pulmonary disease. PLEURA: No significant pleural effusion identified, no pneumothorax apparent. CARDIOVASCULAR: No aortic atherosclerotic calcification present. Normal cardiac size. No pulmonary vascular congestion. OSSEOUS STRUCTURES: No significant abnormalities. VISUALIZED UPPER ABDOMEN: Normal. OTHER FINDINGS: None. IMPRESSION: No active disease.
[2018-12-16 16:39] LABS: TROPONIN I < 0.01 ng/mL
[2018-12-16 17:23] LABS: URINE BILIRUBIN NEGATIVE (NEGATIVE); URINE BLOOD TRACE-INTACT (NEGATIVE); URINE GLUCOSE (UA) NEGATIVE (NEGATIVE); URINE LEUKOCYTE ESTERASE LARGE Leu/uL (NEGATIVE); URINE PROTEIN NEGATIVE mg/dL (<30 mg/dL); URINE UROBILINOGEN 0.2 E.U./dL (<1 E.U./dL)
[2018-12-16 17:27] LABS: URINE APPEARANCE CLEAR (CLEAR); URINE COLOR YELLOW (YELLOW)
[2018-12-16 17:53] LABS: URINE BACTERIA MOD /hpf; URINE RBC 0 - 2 /hpf (0-2)
[2018-12-16 19:30] VITALS: BP 110/78; PULSE 62; TEMP 98.2; O2SAT 99
--- NOTE | 2018-12-16 22:38 | CARD ---
APPROVED REPORT Date of service: 12/16/2018 EKG Measurement Heart [id number] <Conclusion> Normal sinus rhythm Normal ECG
== END 2018-12-16 19:05 | disposition home or self-care (01) ==
LOC: ED 15:15
DX: B34.9 Viral infection, unspecified (principal); I10 Essential (primary) hypertension; E11.9 Type 2 diabetes mellitus without complications; Z86.73 Personal history of transient ischemic attack (TIA), and cerebral infarction without residual deficits; F17.210 Nicotine dependence, cigarettes, uncomplicated
CPT/HCPCS: 71045; 80053; 81001; 83690; 84484; 85025; 85610; 85730; 87086; 87804; 93005; 94640; 96374; 99284; J2405; J7030